=== PATIENT | male | born 1945 | race American Indian/Alaskan Native ===

== ENCOUNTER 2022-02-15 05:54 | Day surgery (SDC) | payer MEDICARE ==
[2022-02-08 10:43] LABS: Hematocrit 40.5 % (35.5-45.6); Hemoglobin 13.1 gm/dl (11.8-15.2); Mean Corpuscular HGB Conc 32 % (32-34); Mean Corpuscular Volume 87 fl (84-94); Platelet Count 140 K/mm3 (140-440); Red Blood Count 4.68 M/mm3 (3.65-5.03); Red Cell Distribution Width 15.3 % (13.2-15.2)
[2022-02-15] MEDS ORDERED: LACTATED RINGERS 1,000 ML IV SCH (06:00)
[2022-02-15] MEDS ORDERED: ACETAMINOPHEN 325 MG TAB PO SCH (06:00)
[2022-02-15] MEDS ORDERED: GABAPENTIN 100 MG CAP PO SCH (06:00)
[2022-02-15] MEDS ORDERED: LIDOCAINE MPF (2%) 20 MG/1 ML VIAL 5 ML ONE (07:15)
[2022-02-15] MEDS ORDERED: dexAMETHasone 20 MG/5 ML VIAL ONE (07:15)
[2022-02-15] MEDS ORDERED: PHENYLEPHRINE/NS 1,000 MCG/10 ML SYRINGE (OR USE) IV ONE (07:15)
[2022-02-15] MEDS ORDERED: ROCURONIUM 50 MG/5 ML INJ IV ONE (07:15)
[2022-02-15] MEDS ORDERED: propofoL 200 MG/20 ML VIAL IV ONE (07:16)
[2022-02-15] MEDS ORDERED: fentaNYL 100 MCG/2 ML INJ ONE (07:18)
--- NOTE | 2022-02-15 07:23 | Anesthesia Day of Surgery ---
Anesthesia Day of Surgery - Day of Surgery Patient Examined: Yes Patient H&P Reviewed: Yes Patient is NPO: Yes
--- NOTE | 2022-02-15 07:23 | Anesthesia Consultation ---
Anesthesia Consult and Med Hx Date of service: 02/15/22 - Airway Anesthetic Teeth Evaluation: Good ROM Head & Neck: Adequate Mental/Hyoid Distance: Adequate Mallampati Class: Class II Intubation Access Assessment: Probably Good - Pulmonary Exam CTA: Yes - Cardiac Exam Cardiac Exam: RRR - Pre-Operative Health Status ASA Pre-Surgery Classification: ASA2 Proposed Anesthetic Plan: General - Pulmonary Hx Smoking: Yes (quit 5 yrs) Hx Respiratory Symptoms: No Hx Sleep Apnea: No (ARTEMIO PRE SCREEN HIGH RISK) - Cardiovascular System Hx Hypertension: Yes (taken off meds x 2-3 months per PCP) Hx Heart Attack/AMI: No Hx Percutaneous Transluminal Coronary Angioplasty (PTCA): No Hx Cardia Arrhythmia: No - Central Nervous System CVA: No - Gastrointestinal Hx Ulcer: Yes - Endocrine Hx Renal Disease: No Hx Liver Disease: No Hx Insulin Dependent Diabetes: No Hx Non-Insulin Dependent Diabetes: No Hx Thyroid Disease: No - Hematic Hx Anemia: Yes (hx Fe def anemia s/p Fe infusions; resolved) - Other Systems Hx Alcohol Use: Yes (remote hx abuse; abstinent since 2016) - Additional Comments Anesthesia Medical History Comments: No hx anesthetic complications. Recent preop PCP eval on chart reviewed.
[2022-02-15] MEDS ORDERED: HYDROmorphone 1 MG/1 ML INJ IV PRN (08:00)
[2022-02-15] MEDS ORDERED: ONDANSETRON 4 MG/2 ML INJ IV PRN (08:00)
[2022-02-15] MEDS ORDERED: ceFAZolin/STERILE WATER 2 GM/20 ML SYRINGE IV NR (08:00)
[2022-02-15] MEDS ORDERED: HYDROcodone/ACETAMINOPHEN 5-325 MG TAB PO PRN (08:30)
[2022-02-15] MEDS ORDERED: ceFAZolin 1 GM VIAL ONE (08:39)
[2022-02-15] MEDS ORDERED: ePHEDrine SULFATE 50 MG/1 ML INJ ONE (08:54)
[2022-02-15] MEDS ORDERED: LIDOCAINE (1%) 10 MG/1 ML VIAL 20 ML MDV INFILTRATI ONE (09:11)
[2022-02-15] MEDS ORDERED: BUPIVACAINE/PF (0.5%) 5 MG/1 ML 30 ML VIAL INFILTRATI ONE (09:11)
[2022-02-15] MEDS ORDERED: WATER FOR IRRIG STERILE 1,500 ML BOTTLE IR ONE (09:12)
[2022-02-15] MEDS ORDERED: NEOSTIGMINE 10MG/10 ML INJ MDV ONE (10:10)
[2022-02-15] MEDS ORDERED: GLYCOPYRROLATE 0.4 MG/2 ML INJ ONE (10:10)
[2022-02-15] MEDS ORDERED: LACTATED RINGERS 2,000 ML ONE (10:14)
[2022-02-15] MEDS ORDERED: KETOROLAC 30 MG/1 ML INJ ONE (10:18)
[2022-02-15] MEDS ORDERED: ONDANSETRON 4 MG/2 ML INJ ONE (10:18)
--- NOTE | 2022-02-15 10:36 | Short Stay Summary ---
Short Stay Documentation Date of service: 02/15/22 - History Principal diagnosis: RIGHT INGUINAL HERNIA H&P: obtained from office - Allergies and Medications Current Medications: Allergies No Known Allergies Allergy (Verified 01/31/22 16:36) Home Medications Medication Instructions Recorded Confirmed Last Taken Type Alfuzosin HCl [Alfuzosin HCl ER] 10 mg PO DAILY 01/31/22 01/31/22 Unknown History Atorvastatin [Lipitor Tab] 80 mg PO QHS 01/31/22 01/31/22 Unknown History Ferrous Sulfate [Ferrous Sulfate 324 mg PO DAILY 01/31/22 01/31/22 Unknown History 324 MG] Voltaren Arthritis Pain 1 dose TP PRN PRN 01/31/22 01/31/22 Unknown History Active Medications Acetaminophen (Acetaminophen 325 Mg Tab) 650 mg PO PREOP GILBERTO Hydrocodone Bitart/Acetaminophen (Hydrocodone/Acetaminophen 5-325 Mg Tab) 2 each PO ONCE PRN PRN Reason: Pain, Moderate (4-6) Stop: 02/15/22 17:00 Cefazolin Sodium (Cefazolin/Sterile Water 2 Gm/20 Ml Syringe) 2 gm IV PREOP NR Stop: 02/15/22 21:00 Gabapentin (Gabapentin 100 Mg Cap) 100 mg PO PREOP GILBERTO Hydromorphone HCl (Hydromorphone 1 Mg/1 Ml Inj) 0.5 mg IV Q10MIN PRN PRN Reason: Pain , Severe (7-10) Stop: 02/15/22 18:00 Lactated Ringer's (Lactated Ringers) 1,000 mls @ 100 mls/hr IV DIRECT GILBERTO Stop: 02/15/22 23:59 Ondansetron HCl (Ondansetron 4 Mg/2 Ml Inj) 4 mg IV ONCE PRN PRN Reason: Nausea And Vomiting Stop: 02/15/22 18:00 - Brief post op/procedure progress note Date of procedure: 02/15/22 Pre-op diagnosis: RIGHT INGUINAL HERNIA Post-op diagnosis: same Procedure: robotic assisted right inguinal hernia repair with mesh Anesthesia: GETA, local, other (right ilioinguinal nerve block) Findings: Large right inguinoscrotal hernia containing small bowel - reducible. Surgeon: ALEXANDRO CHAVEZ Yield Clerk: SHAMEKA KRAUS Estimated blood loss: minimal Pathology: none Condition: stable - Hospital course Hospital course: Pt observed in PACU and discharged to home in stable condition - Disposition Condition at discharge: Good Disposition: 01 HOME / SELF CARE / HOMELESS Short Stay Discharge Plan Activity: other (no heavy lifting) Diet: regular Wound: open to air, per your surgeon's advice Additional Instructions: please see printed instructions Follow up with: ZAINA HENRY MD [Primary Care Provider] - 7 Days ALEXANDRO CHAVEZ DO [Staff Physician] - 14 Days Prescriptions: Gabapentin 200 mg PO BID 3 Days #6 capsule Ibuprofen [Motrin 800 MG tab] 800 mg PO Q8HR PRN #30 tablet PRN Reason: Pain, Moderate (4-6) HYDROcodone/APAP 5-325 [[place] 5-325 mg TAB] 1 each PO Q6H PRN #20 tablet PRN Reason: Pain , Severe (7-10)
--- NOTE | 2022-02-15 12:45 | Post Anesthesia Evaluation ---
- Post Anesthesia Evaluation Patient Participated: Yes Airway Patent: Yes Stable Respiratory Function: Yes Nausea/Vomiting: No Temp > 96.8F: Yes Pain Manageable: Yes Adequeate Hydration: Yes Anesthesia Complications: No
--- NOTE | 2022-02-15 12:52 | Operative Report ---
Operative Report Operative Report: Date of procedure: 02/15/22 Pre-op diagnosis: RIGHT INGUINAL HERNIA Post-op diagnosis: same Procedure: robotic assisted right inguinal hernia repair with mesh Anesthesia: GETA, local, other (right ilioinguinal nerve block) Findings: Large right inguinoscrotal hernia containing small bowel - reducible. Surgeon: ALEXANDRO CHAVEZ Credit And Collection Manager: SHAMEKA KRAUS Estimated blood loss: minimal Pathology: none Condition: stable Hospital course: Pt observed in PACU and discharged to home in stable condition Condition at discharge: Good Disposition: 01 HOME / SELF CARE / HOMELESS HPI and indication: Patient is a 76-year-old male who was referred to the surgery clinic for a bulge in the right groin. He was found to have a reducible right inguinal hernia on physical exam. It was recommended that the hernia be repaired. I discussed all risk, benefits, alternatives to repair with the patient and questions were answered. I explained that if the hernia was found on the left side at the same time, this could be fixed as well. The patient was agreeable. Consent obtained for robotic assisted right inguinal hernia repair with mesh, possible left, possible open. All pertinent labs were reviewed and medical clearance obtained from primary care physician. Procedure in detail: Patient was identified in the preoperative area, take back to operating room placed on operative table in supine position. After anesthesia was induced both arms were tucked and all bony prominences padded appropriately. A Andrews catheter was sterilely placed by the circulating nurse. The abdomen and b/l groins were then prepped and draped in usual sterile fashion and a timeout performed. Local anesthetic was infiltrated to skin at the intended incision sites. A supraumbilical incision was made through which a Veress needle was inserted. Veress needle positioning was confirmed using saline drop test but during insufflation the abdominal pressures were high. Therefore a ginny incision was made in the left upper quadrant at Stafford's point through which a Veress needle was inserted. The Veress needle positioning was confirmed using the saline drop test and the abdomen insufflated to 15 mmHg without incident. A 5 mm Optiview trocar was placed through the supraumbilical incision. The abdomen is inspected there was no underlying injury to any of the abdominal structures. The Veress needle was identified and removed. Patient was placed in Trendelenburg and the pelvis examined. There was a large right inguinal hernia containing small bowel which was gently reduced under direct visualization. No obvious hernia on the right. At this point, an 8 mm right upper quadrant and left upper quadrant robotic trocars were then placed under direct visualization. The 5 mm supraumbilical trocar was removed and replaced with a 12 mm balloon trocar under direct visualization. A Ray-Balbina was placed into the abdomen. The robot was then docked. A fenestrated bipolar was placed into arm #2 and a monopolar scissor in arm #1. The surgeon was then transferred to the console. First, I dissected the adhesions from the small bowel to the hernia sac. This was done very meticulously. I then created a right sided preperitoneal flap. The peritoneum was scored approximately 5 to 6 cm from the hernia defect. The peritoneum was then incised from the midline to the ASIS. The preperitoneal flap was then developed in an avascular plane. I first defined the medial margin by dissecting to the pubic tubercle. The pubic tubercle was cleared of overlying fatty tissue using blunt dissection. I then created the lateral margin in a similar fashion. Great care was taken to avoid injury to any nerves. There was a large indirect inguinoscrotal hernia and the hernia sac was gently reduced using blunt dissection and transecting cremasteric fibers with electrocautery. During the dissection, the cord structures were identified and protected. The cord structures and vas deferens were visualized throughout the entire dissection. Hernia sac was very patulous/redundant. Incarcerated preperitoneal fat was reduced. Once the hernia sac was completely reduced, the peritoneal flap was checked for hemostasis. Any additional cremasteric fibers that were were tenting up the peritoneum were divided. Hemostasis was carefully ensured. The hernia was repaired using a right large 3D max mesh. The mesh along with suture material was placed into the abdomen by the bakery assistant. The mesh was positioned into the preperitoneal flap in the usual fashion. The medial portion of the mesh was sutured to Vin's ligament using an interrupted 2-0 Vicryl stitch. The lateral aspect of the mesh was sutured to the anterior lateral abdominal wall using a 2-0 Vicryl interrupted stitch. The mesh was seen to lay flat in the pocket with excellent coverage. An 18 [place] Angiocath was inserted through the right lower quadrant by the bakery assistant surgeon under direct visuali zation. This was positioned in the pocket in order to facilitate evacuation of free peritoneal air at the end of the case. The peritoneum was then reapproximated using 3-0 running V-Loc stitch. A large defect in the center of the peritoneum was closed using a running 3-0 V loc stitch. The entirety of the mesh was covered with peritoneum. The robot was then undocked and the surgeon scrubbed back in. The remainder of the case was performed laparoscopically. All sharp materials along with a Ray-Balbina were removed from the abdomen under direct visualization. The 12 mm port was removed and the fascia closed using a interrupted 0 Vicryl stitch. The abdomen was then slowly desufflated and the mesh was seen to lay flat in the preperitoneal space. The remaining trocars were removed. Preperitoneal air was evacuated through the Angiocath in the right lower quadrant and then the Angiocath was removed. Skin incisions were once again infiltrated with local anesthetic. Right ilioinguinal nerve block was also performed with 5 cc of local anesthetic. The skin incisions were approximated with 4-0 Monocryl subcuticular stitches and skin glue. At the end of the case all sponge, instrument, sharp counts were correct x2. Patient was awoken from anesthesia and Andrews catheter removed. Both testicles were palpated in the scrotum in anatomic position. A scrotal support and abdominal binder was applied to the patient The patient was taken to PACU in stable condition.
[2022-02-15 19:14] VITALS: BP 138/82
== END 2022-02-15 05:55 | disposition home or self-care (01) ==
LOC: OR 05:54
PROVIDERS: ATTEND Surgery
DX: K40.90 Unilateral inguinal hernia, without obstruction or gangrene, not specified as recurrent (principal); Z20.822 Contact with and (suspected) exposure to COVID-19; K66.0 Peritoneal adhesions (postprocedural) (postinfection); E78.00 Pure hypercholesterolemia, unspecified; I10 Essential (primary) hypertension; M19.90 Unspecified osteoarthritis, unspecified site; D64.9 Anemia, unspecified; Z87.891 Personal history of nicotine dependence; Z79.899 Other long term (current) drug therapy; Z72.89 Other problems related to lifestyle; Z98.890 Other specified postprocedural states
CPT/HCPCS: 36415; 49650; 82962; 85027; C1781; J0690; J1100; J1815; J1885; J2370; J2405; J2704; J2710; J3010; J3490; J7120; U0003